=== PATIENT | male | born 1965 | race Caucasian/White ===

== ENCOUNTER → 2016-06-09 | Outpatient (CLI) | payer OTHER ==
[~2016-06-09] MED LIST: ATV/1 PO; EFF75 PO; EFFSR75 PO; HYDR-5688 PO; IBUP-103 PO; LOPE-5 PO; LOSA25TA18 PO; LSN20 PO; PARO30TA4 PO; PRLSR20 PO; VENL150T33 PO; VENL75CA73 PO
--- NOTE | 2016-06-09 09:31 | DIAGNOSTIC IMAGING REPORT ---
KUB CLINICAL HISTORY: Microscopic hematuria. Right-sided pain. COMPARISON STUDY: None. FINDINGS: There are are cholecystectomy clips. No renal calculi are identified although the renal shadows are partially obscured by stool. Pelvic calcifications likely reflect phleboliths. IMPRESSION: 1. No urinary calculi identified although the renal shadows are partially obscured by stool. 2. No evidence for a bowel obstruction. 3. Moderate amount of stool within the colon. 4. Pelvic calcifications which likely reflect phleboliths. Electronically signed by: Sen Hall M.D. 06/09/2016 9:29 AM Dictated Date/Time: 06/09/2016 9:28 AM
== END | disposition home or self-care (01) ==
LOC: C.RAD1850 09:11
PROVIDERS: ATTEND Family Medicine
DX: R31.29 Other microscopic hematuria (principal); I87.8 Other specified disorders of veins

== ENCOUNTER → 2016-06-09 | Outpatient (CLI) | payer OTHER | END | disposition home or self-care (01) | LOC: C.LABSPEC 09:55 | PROVIDERS: ATTEND Family Medicine | DX: R35.0 Frequency of micturition (principal) ==

== ENCOUNTER → 2016-06-10 | Outpatient (CLI) | payer OTHER ==
--- NOTE | 2016-06-10 09:46 | DIAGNOSTIC IMAGING REPORT ---
TESTICULAR ULTRASOUND HISTORY: RT GROIN PAIN,TESTICULAR PAIN COMPARISON: None. FINDINGS: Right testis: There are no intratesticular masses. Normal color flow. No hydrocele. The epididymis is unremarkable. Left testis: There are no intratesticular masses. Normal color flow. No hydrocele. The epididymis is unremarkable. IMPRESSION: Normal testicular ultrasound. Electronically signed by: Len Grey M.D. 06/10/2016 9:44 AM Dictated Date/Time: 06/10/2016 9:43 AM
--- NOTE | 2016-06-10 09:47 | DIAGNOSTIC IMAGING REPORT ---
RIGHT INGUINAL ULTRASOUND TO EVALUATE FOR HERNIA CLINICAL HISTORY: Right groin pain. Testicular pain. COMPARISON STUDY: No previous studies for comparison. FINDINGS: There is a possible fat-containing right inguinal hernia. This appeared reducible. Comparison sonography of the left inguinal region revealed no left-sided inguinal hernia. IMPRESSION: Possible fat-containing reducible right inguinal hernia. Electronically signed by: Sen Hall M.D. 06/10/2016 9:46 AM Dictated Date/Time: 06/10/2016 9:43 AM
== END | disposition home or self-care (01) ==
LOC: C.ULTRBC 08:52
PROVIDERS: ATTEND Family Medicine
DX: N50.819 Testicular pain, unspecified (principal); R10.30 Lower abdominal pain, unspecified

== ENCOUNTER → 2016-06-30 | Outpatient (CLI) | payer OTHER ==
[2016-06-30 14:04] LABS: URINE APPEARANCE CLEAR (CLEAR); URINE BILIRUBIN NEG (NEG); URINE COLOR YELLOW; URINE EPITHELIAL CELL AUTO 0-5 /lpf (0-5); URINE NITRITE NEG (NEG); URINE PH 7.5 (4.5-7.5); URINE SPECIFIC GRAVITY 1.003 (1.000-1.030); UROBILINOGEN NEG (NEG)
[2016-06-30 14:10] LABS: MANUAL MICROSCOPIC REQUIRED? NO; REVIEW REQ? NO
== END | disposition home or self-care (01) ==
LOC: C.LABBC 09:38
PROVIDERS: ATTEND Family Medicine
DX: R31.29 Other microscopic hematuria (principal)

== ENCOUNTER → 2016-07-03 | Outpatient (CLI) | payer OTHER ==
[2016-07-03 11:28] LABS: ALT/SGPT 25 U/L (12-78); AST/SGOT 17 U/L (15-37); BLOOD UREA NITROGEN 10 mg/dl (7-18); BUN/CREATININE RATIO 12.2 (10-20); CALCIUM 8.4 mg/dl (8.5-10.1); CARBON DIOXIDE 31 mmol/L (21-32); CHLORIDE 105 mmol/L (98-107); CREATININE 0.82 mg/dl (0.60-1.40); GLUCOSE 96 mg/dl (70-99); POTASSIUM 4.1 mmol/L (3.5-5.1); SODIUM 141 mmol/L (136-145)
[2016-07-03 11:34] LABS: ALB/GLOB RATIO 1.1 (0.9-2); ALKALINE PHOSPHATASE 60 U/L (45-117)
[2016-07-03 11:35] LABS: ESTIMATED AVERAGE GLUCOSE 94 mg/dl; HA1C FLAG Normal (Normal)
== END | disposition home or self-care (01) ==
LOC: C.LABBC 08:17
PROVIDERS: ATTEND Family Medicine
DX: R81 Glycosuria (principal); R35.0 Frequency of micturition

== ENCOUNTER → 2016-07-09 | Outpatient (CLI) | payer OTHER ==
[~2016-07-09] MED LIST changes: +OPTIRAY 320 IV PRN
--- NOTE | 2016-07-09 11:27 | DIAGNOSTIC IMAGING REPORT ---
CT UROGRAM CLINICAL HISTORY: Hematuria. COMPARISON STUDY: KUB dated 06/09/2016. TECHNIQUE: Before and following the IV administration of 120 cc of Optiray 320, CT urogram of the abdomen and pelvis is performed from the lung bases to the proximal femora. Images are reviewed in the axial, sagittal, and coronal planes. IV contrast was administered without complication. CT DOSE: 1211.32 mGy.cm FINDINGS: Lung bases: The heart is normal in size and without pericardial effusion. There is a 5 mm right lower lobe pulmonary nodule seen on image #34. The lung bases are otherwise clear. Liver: The contrast-enhanced liver is normal in size, contour, and attenuation. There is no intrahepatic biliary ductal dilatation. The hepatic veins and portal veins are patent. Gallbladder: Surgically absent noting clips in the gallbladder fossa. Spleen: Normal in size and attenuation. Pancreas: Unremarkable. Adrenal glands: A 1.6 cm left adrenal nodule meets CT criteria for a fat-containing adenoma. The right adrenal gland is unremarkable. Kidneys and ureters: The contrast enhanced kidneys are normal in size and without hydronephrosis. There are no renal calculi identified on the unenhanced images. The kidneys enhance and excrete symmetrically. There is no enhancing renal cortical mass lesion identified. Subcentimeter hypodensities in both kidneys likely represent cysts but are too small for definitive characterization. There is no evidence of urothelial lesion within the renal pelvis bilaterally or along the course of either ureter. Abdominal vasculature: The abdominal aorta is normal in course and caliber. Bowel: There is no bowel obstruction. There is mild to moderate sigmoid diverticulosis without CT evidence of acute diverticulitis. Mild colonic fecal retention is observed. The appendix is well-visualized and normal. Peritoneum: There is no intraperitoneal free air or abdominal ascites. A midline surgical scar is noted. There are several fat-containing ventral hernias. The largest hernias are seen on image #169 and #188. Lymphadenopathy: None. Pelvic viscera: There is mild median lobe hypertrophy of the prostate gland. The bladder wall appears mildly thickened and trabeculated suggesting the sequelae of chronic outlet obstruction. The seminal vesicles are normal as imaged. Skeletal structures: There is mild lumbosacral spondylosis. Degenerative sclerosis is seen in the sacroiliac joints, left greater than right. No lytic or blastic bony lesions are seen. IMPRESSION: 1. The kidneys are normal in size and without hydronephrosis. There are no renal calculi identified. 2. There is no enhancing renal cortical mass. No evidence of urothelial lesion is seen within the renal pelvis bilaterally or along the course of the ureters. 3. There is mild median lobe hypertrophy of the prostate gland. The bladder wall appears slightly thickened and trabeculated suggesting chronic outlet obstruction. 4. Mild to moderate sigmoid diverticulosis without CT evidence of acute diverticulitis. 5. There is an indeterminant 5 mm pulmonary nodule at the right lung base. This can be followed as per the Fleischner criteria. See below. 6. There is a midline surgical scar with fat-containing ventral hernias. 7. Additional findings as above. Electronically signed by: Ciaran Mcdermott M.D. 07/09/2016 11:26 AM Dictated Date/Time: 07/09/2016 11:15 AM
== END | disposition home or self-care (01) ==
LOC: C.CTS 10:40
PROVIDERS: ATTEND Family Medicine
DX: R31.29 Other microscopic hematuria (principal); R91.1 Solitary pulmonary nodule; K43.9 Ventral hernia without obstruction or gangrene

== ENCOUNTER 2016-07-10 15:38 | Emergency (ER) | payer OTHER ==
[~2016-07-10] VITALS: Ht 185.4 cm; Wt 96.1 kg
[~2016-07-10 15:38] MED LIST changes: -ATV/1 PO; -EFF75 PO; -HYDR-5688 PO; -IBUP-103 PO; -LOSA25TA18 PO; -OPTIRAY 320 IV PRN; -PRLSR20 PO; -VENL150T33 PO; -VENL75CA73 PO
[2016-07-10 15:40] VITALS: TEMP 37; Ht 185.4 cm; Wt 96.1 kg
--- NOTE | 2016-07-10 16:02 | EMERGENCY ROOM VISIT NOTE ---
History Report prepared by Samuel: Sheyla Blackman Under the Supervision of: Dr. Joaquin Mayfield M.D. First contact with patient: 15:50 Chief Complaint: GI ASSESSMENT Stated Complaint: COUGHING UP BLOOD Nursing Triage Summary: Pt c/o "coughing up blood today", coughing started last night. Pt states he has been seeing Dr Kohler. Two UA, both had blood, prostate enlarged , bladder wall thickened, also has hernia and nodule on lung. History of Present Illness The patient is a 51 year old male who presents to the Emergency Room with complaints of persistent hemoptysis that began today. He currently rates his discomfort as a 2/10 in severity. The patient states that yesterday he noticed a slight cough, but states that today he started coughing up blood. He states that he coughed up a clot today, and now has been noticing bright red blood. The patient denies any hematemesis. He states that he called the nursing line today and was instructed to come to the emergency department for further work up. The patient denies any fever or chills. He states that he is a daily smoker for the past thirty years. The patient states that he smokes one pack per day. He states that recently he has been taking ibuprofen for a pulled muscle. The patient denies any recent sinus infection or oral infection. He states that three weeks ago he went to his PCP for right groin pain and was found to have a hernia. The patient states that he has an appointment with a general surgeon this week. He additionally notes that he had two urinalyses that showed hematuria. The patient states that he had a CT scan that showed an enlarged prostate, thickening of his bladder wall, and a small nodule in his lung. He states that no kidney stone was found. The patient states that he also has been referred to a software licensing analyst for his lung nodule. Source of History: patient Onset: today Position: other (global) Symptom Intensity: 2/10 Quality: other (hemoptysis) Timing: other (persistent) Associated Symptoms: + cough, + urinary symptoms (hematuria), No chills, No fevers Review of Systems All systems have been listed, reviewed, and are negative other than those previously mentioned. Please see Additional Medical History Sheet. Past Medical & Surgical Medical Problems: (1) Depression (2) Hypertension Surgical Problems: (1) H/O hernia repair (2) Hx of cholecystectomy Family History Cancer Diabetes mellitus FH: gallbladder disease Heart disease Hypertension Kidney disease Kidney stones Social History Smoking Status: Current Every Day Smoker Alcohol Use: none Marital Status: Housing Status: lives with family Occupation Status: employed Current/Historical Medications Scheduled Losartan Potassium (Cozaar), 25 MG PO DAILY Omeprazole (Prilosec), 20 MG PO DAILY Venlafaxine Hcl (Venlafaxine Hcl Er), 150 MG PO DAILY Venlafaxine Hcl (Venlafaxine Extended Rel), 75 MG PO DAILY Scheduled PRN Ibuprofen Tab (Advil), 400 MG PO Q6H PRN for Pain Lorazepam (Ativan), 1 MG PO BID PRN for Anxiety Allergies Coded Allergies: No Known Allergies (Verified , 07/10/16) Physical Exam Vital Signs Date Time Temp Pulse Resp B/P Pulse Ox O2 Delivery O2 Flow Rate FiO2 07/10/16 15:40 37.0 77 17 151/94 98 Room Air Physical Exam GENERAL: Patient awake, alert, oriented x 3. Patient follows commands. Patient does not appear toxic. Patient is adequately hydrated and well- nourished. SKIN: No erythema, pallor, cyanosis or rash HEENT: Normal head, pupils equal, reactive to light and accommodation. Ears normal. Oral cavity and posterior pharynx appear normal. Neck: Without adenopathy, no neck vein distention. LUNGS: Clear to auscultation. No wheezes, no rales, no rhonchi. HEART: No murmurs. No gallops. No rubs ABDOMEN: No masses, no rebound, no hepatomegaly or splenomegaly. EXTREMITIES: No signs of trauma. No pedal or pretibial edema. No calf or thigh tenderness. NEUROLOGIC: Cranial nerves II-XII within normal limits. No gross motor sensory function deficits. Medical Decision & Procedures ER Provider Diagnostic Interpretation: CT results are interpretations by the radiologist and per my review. CT ANGIOGRAM OF THE CHEST CLINICAL HISTORY: Hemoptysis COMPARISON STUDY: Chest x-ray performed October 2013 TECHNIQUE: Following the IV administration of 122 mL of Optiray-320, CT angiogram of the thorax was performed from the thoracic inlet to the lung bases utilizing the pulmonary embolus protocol. Images are reviewed in the axial, sagittal, and coronal planes. IV contrast was administered without complication. MIP imaging was performed. CT DOSE: 484.01 mGy.cm FINDINGS: No pathologically enlarged axillary mediastinal or hilar lymph nodes were visualized. There was no evidence of thoracic aortic dilatation. There were no pulmonary artery filling defects to indicate acute pulmonary embolism. No pleural effusions are visualized. There is a 6 mm right lower lobe pulmonary nodule as visualized in image #125/318. There is a 3 mm right lower lobe pulmonary nodule as visualized in image #156/318. There is no focal pulmonary consolidation. There are biapical blebs. IMPRESSION: 1. No CT evidence of acute pulmonary embolism 2. 6 mm right lower lobe pulmonary nodule. Follow-up per Fleischner criteria is recommended. 3. No evidence of focal pulmonary consolidation Please refer to below summary of Fleischner criteria recommendations for follow-up of incidental CT nodules (Ruma Gamboa, Guidelines for management of small pulmonary nodules detected on CT scans: A statement from the Fleischner Society, Radiology 237: [phone].) Low Risk Patient: Minimal or no smoking or other known risk factors for malignancy <=4 mm: No follow-up needed. >4-6 mm: Initial follow-up CT at 12 months; if unchanged, no further follow-up. >6-8 mm: Initial follow-up CT at 6-12 months then at 18-24 months if no change. >8 mm: Follow-up CT at \\R\\3, 9, 24 months, or PET and/or biopsy. High Risk Patient: History of smoking or other known risk factors <=4 mm: Follow-up at 12 months; if unchanged, no further follow-up. >4-6 mm: Initial follow-up CT at 6-12 months then at 18-24 months if no change. >6-8 mm: Initial follow-up CT at 3-6 months then at 9-12 and 24 months if no change. >8 mm: Same as low risk patient. Note: Nodule size measured as average of length and width. Ground glass or partly solid nodules may require longer follow-up to exclude indolent adenocarcinoma. Electronically signed by: Lexx Lewis M.D. 07/10/2016 6:31 PM Dictated Date/Time: 07/10/2016 6:25 PM Laboratory Results 07/10/16 16:10 Red Blood Count 4.56, Mean Corpuscular Volume 93.6, Mean Corpuscular Hemoglobin 32.5, Mean Corpuscular Hemoglobin Concent 34.7, Mean Platelet Volume 9.2, Neutrophils (%) (Auto) 55.8, Lymphocytes (%) (Auto) 33.3, Monocytes (%) (Auto) 7.8, Eosinophils (%) (Auto) 2.5, Basophils (%) (Auto) 0.6, Neutrophils # (Auto) 2.94, Lymphocytes # (Auto) 1.75, Monocytes # (Auto) 0.41, Eosinophils # (Auto) 0.13, Basophils # (Auto) 0.03 07/10/16 16:10 Test 07/10/16 16:10 White Blood Count 5.26 K/uL (4.8-10.8) Red Blood Count 4.56 M/uL (4.7-6.1) Hemoglobin 14.8 g/dL (14.0-18.0) Hematocrit 42.7 % (42-52) Mean Corpuscular Volume 93.6 fL (80-100) Mean Corpuscular Hemoglobin 32.5 pg (25-34) Mean Corpuscular Hemoglobin Concent 34.7 g/dl (32-36) Platelet Count 245 K/uL (130-400) Mean Platelet Volume 9.2 fL (7.4-10.4) Neutrophils (%) (Auto) 55.8 % Lymphocytes (%) (Auto) 33.3 % Monocytes (%) (Auto) 7.8 % Eosinophils (%) (Auto) 2.5 % Basophils (%) (Auto) 0.6 % Neutrophils # (Auto) 2.94 K/uL (1.4-6.5) Lymphocytes # (Auto) 1.75 K/uL (1.2-3.4) Monocytes # (Auto) 0.41 K/uL (0.11-0.59) Eosinophils # (Auto) 0.13 K/uL (0-0.5) Basophils # (Auto) 0.03 K/uL (0-0.2) RDW Standard Deviation 47.0 fL (36.4-46.3) RDW Coefficient of Variation 13.7 % (11.5-14.5) Immature Granulocyte % (Auto) 0.0 % Immature Granulocyte # (Auto) 0.00 K/uL (0.00-0.02) Prothrombin Time 10.8 SECONDS (9.0-12.0) Prothromb Time International Ratio 1.0 (0.9-1.1) Activated Partial Thromboplast Time 29.2 SECONDS (21.0-31.0) Partial Thromboplastin Ratio 1.1 Anion Gap 9.0 mmol/L (3-11) Est Creatinine Clear Calc Drug Dose 141.8 ml/min Estimated GFR () 123.5 Estimated GFR (Non- 106.6 BUN/Creatinine Ratio 9.6 (10-20) Calcium Level 9.0 mg/dl (8.5-10.1) Total Bilirubin 0.4 mg/dl (0.2-1) Aspartate Amino Transf (AST/SGOT) 15 U/L (15-37) Alanine Aminotransferase (ALT/SGPT) 23 U/L (12-78) Alkaline Phosphatase 62 U/L (45-117) Troponin I 0.020 ng/ml (0-0.045) Total Protein 7.5 gm/dl (6.4-8.2) Albumin 3.7 gm/dl (3.4-5.0) Globulin 3.8 gm/dl (2.5-4.0) Albumin/Globulin Ratio 1.0 (0.9-2) Laboratory results as stated above per my review. ECG Indication: other (hemoptysis) Rate (beats per minute): 56 Rhythm: sinus bradycardia Findings: no acute ischemic change, no ectopy ED Course 1550: Past medical records reviewed. The patient was evaluated in room B6. A complete history and physical examination was performed. 1831: I reevaluated the patient and he is resting comfortably. I discussed the exam findings with him and I discussed the treatment plan. He verbalized complete understanding and agreement. He is ready to go home. Medical Decision Nurses notes reviewed. Medical history sheet reviewed. Differential diagnosis includes but is not limited to: hemoptysis, PE, neoplastic disease, bronchitis, pneumonia, congestive failure. Multiple labs, EKG and imaging were obtained. Please see above. Patient has a normal hemoglobin and hematocrit. His white count is within normal range. The patient does not appear to have a coagulopathy. CT reveals the same nodule that was seen on the CT abdomen. No evidence of PE or pneumonia. The patient is stable. I believe that he can safely return home but will most likely need a bronchoscopy in the near future. He is a type to his family physician on Tuesday. The patient was instructed to return here sooner if he is coughing up much more blood. Impression Primary Impression: Hemoptysis Additional Impression: Pulmonary nodule Scribe Attestation The scribe's documentation has been prepared under my direction and personally reviewed by me in its entirety. I confirm that the note above accurately reflects all work, treatment, procedures, and medical decision making performed by me. Departure Information Dispostion Home / Self-Care Referrals Dwain Kohler, D.O.Int.Med. (PCP) Patient Instructions ED Nodule Solitary Pulmonary, My [facility] Additional Instructions Speak with your family physician on Tuesday. Continue all of your current medications as prescribed. Problem Qualifiers
[2016-07-10] MEDS ORDERED: OPTIRAY 320 IV PRN (16:15)
[2016-07-10] MEDS ORDERED: EFF75 PO (16:17)
[2016-07-10] MEDS ORDERED: ATV/1 PO (16:17)
[2016-07-10] MEDS ORDERED: VENL75CA73 PO (16:17)
[2016-07-10] MEDS ORDERED: LOSA25TA18 PO (16:17)
[2016-07-10] MEDS ORDERED: VENL150T33 PO (16:17)
[2016-07-10] MEDS ORDERED: IBUP-103 PO (16:18)
[2016-07-10 16:38] LABS: BASO % 0.6 %; BASO ABS # 0.03 K/uL (0-0.2); COMPLETE YES; EOS % 2.5 %; HEMATOCRIT 42.7 % (42-52); LYMPH % 33.3 %; LYMPH ABS # 1.75 K/uL (1.2-3.4); MEAN CELL VOLUME 93.6 fL (80-100); MEAN CORPUSCULAR HEMOGLOBIN 32.5 pg (25-34); MEAN CORPUSCULAR HGB CONC 34.7 g/dl (32-36); MEAN PLATELET VOLUME 9.2 fL (7.4-10.4); MONO % 7.8 %; NEUT % 55.8 %; PLATELET COUNT 245 K/uL (130-400); RED BLOOD COUNT 4.56 M/uL (4.7-6.1); WHITE BLOOD COUNT 5.26 K/uL (4.8-10.8)
[2016-07-10 16:46] LABS: PARTIAL THROMBOPLASTIN RATIO 1.1; PROTHROMBIN TIME (PATIENT) 10.8 SECONDS (9.0-12.0)
[2016-07-10 16:55] LABS: BUN/CREATININE RATIO 9.6 (10-20); CREATININE 0.77 mg/dl (0.60-1.40); POTASSIUM 3.8 mmol/L (3.5-5.1)
--- NOTE | 2016-07-10 18:32 | DIAGNOSTIC IMAGING REPORT ---
CT ANGIOGRAM OF THE CHEST CLINICAL HISTORY: Hemoptysis COMPARISON STUDY: Chest x-ray performed October 2013 TECHNIQUE: Following the IV administration of 122 mL of Optiray-320, CT angiogram of the thorax was performed from the thoracic inlet to the lung bases utilizing the pulmonary embolus protocol. Images are reviewed in the axial, sagittal, and coronal planes. IV contrast was administered without complication. MIP imaging was performed. CT DOSE: 484.01 mGy.cm FINDINGS: No pathologically enlarged axillary mediastinal or hilar lymph nodes were visualized. There was no evidence of thoracic aortic dilatation. There were no pulmonary artery filling defects to indicate acute pulmonary embolism. No pleural effusions are visualized. There is a 6 mm right lower lobe pulmonary nodule as visualized in image #125/318. There is a 3 mm right lower lobe pulmonary nodule as visualized in image #156/318. There is no focal pulmonary consolidation. There are biapical blebs. IMPRESSION: 1. No CT evidence of acute pulmonary embolism 2. 6 mm right lower lobe pulmonary nodule. Follow-up per Fleischner criteria is recommended. 3. No evidence of focal pulmonary consolidation Please refer to below summary of Fleischner criteria recommendations for follow-up of incidental CT nodules (Ruma Gamb[place], Guidelines for management of small pulmonary nodules detected on CT scans: A statement from the Fleischner Society, Radiology 237: [phone].) Low Risk Patient: Minimal or no smoking or other known risk factors for malignancy <=4 mm: No follow-up needed. >4-6 mm: Initial follow-up CT at 12 months; if unchanged, no further follow-up. >6-8 mm: Initial follow-up CT at 6-12 months then at 18-24 months if no change. >8 mm: Follow-up CT at \R\3, 9, 24 months, or PET and/or biopsy. High Risk Patient: History of smoking or other known risk factors <=4 mm: Follow-up at 12 months; if unchanged, no further follow-up. >4-6 mm: Initial follow-up CT at 6-12 months then at 18-24 months if no change. >6-8 mm: Initial follow-up CT at 3-6 months then at 9-12 and 24 months if no change. >8 mm: Same as low risk patient. Note: Nodule size measured as average of length and width. Ground glass or partly solid nodules may require longer follow-up to exclude indolent adenocarcinoma. Electronically signed by: Lexx Lewis M.D. 07/10/2016 6:31 PM Dictated Date/Time: 07/10/2016 6:25 PM
[2016-07-10 18:55] VITALS: BP 144/92; PULSE 78; O2SAT 100
[2016-07-10] MEDS ORDERED: PRLSR20 PO (22:28)
[2016-07-27] MEDS ORDERED: HYDR-5688 PO (08:26)
[2016-08-31] MEDS ORDERED: HYDR-5688 PO (07:46)
== END 2016-07-10 18:55 | disposition home or self-care (01) ==
LOC: C.EDB 15:39
DX: R04.2 Hemoptysis (principal); R91.1 Solitary pulmonary nodule; F17.200 Nicotine dependence, unspecified, uncomplicated; I10 Essential (primary) hypertension; F32.9 Major depressive disorder, single episode, unspecified; Z90.49 Acquired absence of other specified parts of digestive tract

== ENCOUNTER → 2016-07-22 | Outpatient (CLI) | payer OTHER ==
[~2016-07-22] MED LIST changes: +ATV/1 PO; -EFFSR75 PO; +HYDR-5688 PO; -LOPE-5 PO; +LOSA25TA18 PO; -LSN20 PO; -PARO30TA4 PO; +PRLSR20 PO; +VENL150T33 PO; +VENL75CA73 PO
[2016-07-22 10:22] LABS: HEMATOCRIT 43.7 % (42-52); MEAN CELL VOLUME 94.2 fL (80-100); MEAN CORPUSCULAR HEMOGLOBIN 31.9 pg (25-34); MEAN CORPUSCULAR HGB CONC 33.9 g/dl (32-36); PLATELET COUNT 268 K/uL (130-400); RED BLOOD COUNT 4.64 M/uL (4.7-6.1); WHITE BLOOD COUNT 6.37 K/uL (4.8-10.8)
[2016-07-24 23:32] LABS: MYELOPEROXIDASE AB <1.0 AI (<1.0)
== END | disposition home or self-care (01) ==
LOC: C.LAB1850 09:34
PROVIDERS: ATTEND Internal Medicine Pulmonary Disease
DX: R04.2 Hemoptysis (principal)

== ENCOUNTER → 2016-07-27 | Day surgery (SDC) | payer OTHER ==
[2016-07-16 14:36] VITALS: Ht 185.4 cm; Wt 92.7 kg
[~2016-07-27] VITALS: Ht 185.4 cm; Wt 92.7 kg
[~2016-07-27] MED LIST changes: +ATROPINE SULFATE 0.1 MG/ML 5ML SYR IV PRN; +BUPIVACAINE/EPINEPHRINE 0.5% MPF 1:200,000 30 ML VIAL ONE; +CEFAZOLIN 2000 MG/60 ML D5W IV SCH; +DEXAMETHASONE SOD INJ 4 MG/ML VIAL ONE; +EpHEDrine SULFATE INJ 50 MG/ML AMP IV PRN; +FENTANYL CITRATE INJ 50 MCG/1 ML 2 ML VIAL IV PRN; +FENTANYL CITRATE INJ 50 MCG/1 ML 2 ML VIAL ONE; +FLUMAZENIL 0.1 MG/1 ML 10 ML VIAL IV PRN; +HYDROCODONE/ACETAMOPHEN 5/325MG TAB ONE; +HYDROCODONE/ACETAMOPHEN 5/325MG TAB PO PRN; +HYDROmorphone INJ 2 MG/ML SYR/VIAL IV PRN; +LABETALOL HCL IV 5 MG/ML 20ML IV PRN; +LACTATED RINGER'S 1000ML 1,000 ML IV SCH; +LIDOCAINE HCL 2% 2 ML VIAL (20MG/ML) ONE; +MEPERIDINE HCL 25 MG/ML CARP IV PRN; +MIDAZOLAM HCL 1 MG/ML 2ML VIAL ONE; +NALOXONE HCL 0.4 MG/1 ML VIAL/CARP IV PRN; +ONDANSETRON INJ 2 MG/ML 2 ML VIAL IV PRN; +ONDANSETRON INJ 2 MG/ML 2 ML VIAL ONE; +PHENYLEPHRINE 100MCG/ML 5ML SYR IV PRN; +PROPOFOL IV EMULSION 10 MG/ML 20 ML VIAL IV ONE; +SODIUM CHLORIDE 0.9% 1000ML 1,000 ML IV SCH
--- NOTE | 2016-07-27 08:23 | History & Physical Bridge Note ---
H&P Re-Evaluation Bridge Note: I have examined the patient, reviewed the History & Physical and in the interval since the performance of the History & Physical I have noted the following changes of clinical significance: No changes noted
--- NOTE | 2016-07-27 10:33 | Discharge Instructions-SurgCtr ---
Discharge Instructions Date of Service Jul 27, 2016. Visit Reason for Visit: Right Inguinal Hernia Discharge Discharge Diagnosis / Problem: large indirect right inguinal hernia Discharge Goals Goal(s): Decrease discomfort, Improve function Activity Recommendations Activity Limitations: as noted below Lifting Limitations: no more than 10 pounds Exercise/Sports Limitations: until after follow-up appointment May Resume Sexual Activity: after follow-up appointment Shower/Bathe: tomorrow Anesthesia . Post Anesthesia Instructions: If you have had General Anesthesia or IV Sedation: * Do not drive today. * Resume driving when surgeon permits. * Do not make important decisions or sign legal documents today. * Call surgeon for: 1. Temperature elevations greater than 101 degrees F. 2. Uncontrollable pain. 3. Excessive bleeding. 4. Persistent nausea and vomiting. 5. Medication intolerance (nausea, vomiting or rash). * For nausea and vomiting use only clear liquids such as: tea, soda, bouillon until nausea subsides, then gradually increase diet as tolerated. * If you have any concerns or questions, call your surgeon's office. If physician is unavailable and it is an emergency, call 911 or go to the nearest emergency room. . Diet Recommendations Home Diet: resume previous diet Procedures Procedures Performed: Right Inguinal Open Hernia Repair With Mesh Pending Studies Studies pending at discharge: no Medical Emergencies . Who to Call and When: Medical Emergencies: If at any time you feel your situation is an emergency, please call 911 immediately. . Non-Emergent Contact Non-Emergency issues call your: Primary Care Provider, Surgeon Call Non-Emergent contact if: temperature is above 101, wound has increased drainage, wound has increased redness, wound has increased pain . . "Provider Documentation" section prepared by Niraj Schwartz.
--- NOTE | 2016-07-27 10:34 | [facility] Operative Report ---
Operative Report Operative Date Jul 27, 2016. Pre-Operative Diagnosis Right Inguinal Hernia Post-Operative Diagnosis large indirect right inguinal hernia Procedure(s) Performed open right inguinal hernia repair with mesh Surgeon Dr Schwartz [employer] Water [employer] Surgeon(s) None Estimated Blood Loss 25ML Findings large indirect right inguinal hernia Specimens None Anesthesia LMA Complication(s) None Disposition Recovery Room / PACU I attest to the content of the Intraoperative Record and any orders documented therein. Any exceptions are noted below.
--- NOTE | 2016-07-27 10:57 | Anesthesia Progress Nt - [facility] ---
Anesthesia Post Op Note Date & Time Jul 27, 2016 at 10:57 Vital Signs Pain Intensity: 0 Vital Signs Past 12 Hours Date Time Temp Pulse Resp B/P Pulse Ox O2 Delivery O2 Flow Rate FiO2 07/27/16 10:32 36.7 85 14 156/89 99 Diffusion Mask 8 07/27/16 07:48 36.7 68 16 147/92 97 Room Air Notes Mental Status: alert / awake / arousable, participated in evaluation Pt Amnestic to Procedure: Yes Nausea / Vomiting: adequately controlled Pain: adequately controlled Airway Patency, RR, SpO2: stable & adequate BP & HR: stable & adequate Hydration State: stable & adequate Anesthetic Complications: no major complications apparent
[2016-07-27 11:16] VITALS: TEMP 36.7
--- NOTE | 2016-07-27 11:22 | OPERATIVE REPORT ---
DATE OF OPERATION: 07/27/2016 PREOPERATIVE DIAGNOSIS: Right inguinal hernia. POSTOPERATIVE DIAGNOSIS: Large indirect right inguinal hernia. PROCEDURES: Open right inguinal hernia repair with mesh. SURGEON: Dr. Schwartz. ESTIMATED BLOOD LOSS: Approximately 25 mL. COMPLICATIONS: No immediate. ANESTHESIA: General with laryngeal mask airway. OPERATIVE NOTE: After informed consent was obtained, the patient was taken to the operating suite, placed in supine position. After successful intubation with the LMA the right groin was shaved and sterilely prepped and draped in usual fashion. An inguinal incision was made with a 10 blade scalpel and carried down through the soft tissue using electrocautery. A Weitlaner retractor was used to help exposure. We skeletonized the external oblique aponeurosis. I then made an incision in the aponeurosis with a new 15 blade scalpel and using Metzenbaum scissors we carried this incision distally through the external ring as well as several centimeters proximally. Once in the inguinal canal, we were able to bluntly dissect the surrounding tissue free. I was able to grasp the cord and cord structures with a Jacinto and elevated it and use a blunt finger to gently pick it off the pubic bone. Raymond drain was placed around it to help identification and exposure. There was no evidence of a direct hernia. We slowly explored the cord and cord contents using small amounts of electrocautery as well as blunt dissection. We immediately encountered a very large chronic hernia sac. We gently teased it away from cord and cord structures again using small amounts of electrocautery. Eventually we were able to get the sac which again was very large and chronic and thickened back to its neck at the base of the spermatic cord. We were then able to readily dunk this back down into the abdominal cavity. It did stay reduced on its own. Next, we used a piece of polypropylene mesh that was was santamaria holed as an onlay. We placed it into the floor of the inguinal canal and secured it distally to Epifanio's ligament, laterally along the shelving portion of Poupart's ligament and medially along the midline musculature. It was secured using 0 Ethibond in simple interrupted fashion. The "arms" of the mesh were wrapped around behind the cord and cord structures and again secured to underlying muscle. The mesh was not impinging on the cord itself. No other abnormalities were identified. There was adequate hemostasis at the end of the procedure. We thoroughly irrigated the wound. We then closed the external oblique aponeurosis with 2-0 Vicryl in a running fashion. Prior to doing that, I did inject around the edges of the mesh with Marcaine for postoperative analgesia. After closing the external oblique aponeurosis I irrigated the soft tissue and closed it with 3-0 Vicryl and the skin was closed with 4-0 Monocryl. Some additional Marcaine was injected around the incision and Dermabond glue placed as a dressing. The patient was awakened, extubated, and transferred to recovery in stable condition. I attest to the content of the Intraoperative Record and any orders documented therein. Any exceptio ns are noted below.
[2016-07-27 11:58] VITALS: BP 147/88; PULSE 69; O2SAT 96
== END | disposition home or self-care (01) ==
LOC: X.SURG 07:33
PROVIDERS: ATTEND Surgery
DX: K40.90 Unilateral inguinal hernia, without obstruction or gangrene, not specified as recurrent (principal); I10 Essential (primary) hypertension; F41.9 Anxiety disorder, unspecified; K21.9 Gastro-esophageal reflux disease without esophagitis; F32.9 Major depressive disorder, single episode, unspecified; F17.210 Nicotine dependence, cigarettes, uncomplicated; Z68.27 Body mass index [BMI] 27.0-27.9, adult; Z98.890 Other specified postprocedural states; Z90.49 Acquired absence of other specified parts of digestive tract; Z83.3 Family history of diabetes mellitus; Z80.0 Family history of malignant neoplasm of digestive organs; Z82.49 Family history of ischemic heart disease and other diseases of the circulatory system

== ENCOUNTER → 2016-08-09 | Outpatient (CLI) | payer OTHER ==
[~2016-08-09] MED LIST changes: -ATROPINE SULFATE 0.1 MG/ML 5ML SYR IV PRN; -BUPIVACAINE/EPINEPHRINE 0.5% MPF 1:200,000 30 ML VIAL ONE; -CEFAZOLIN 2000 MG/60 ML D5W IV SCH; -DEXAMETHASONE SOD INJ 4 MG/ML VIAL ONE; -EpHEDrine SULFATE INJ 50 MG/ML AMP IV PRN; -FENTANYL CITRATE INJ 50 MCG/1 ML 2 ML VIAL IV PRN; -FENTANYL CITRATE INJ 50 MCG/1 ML 2 ML VIAL ONE; -FLUMAZENIL 0.1 MG/1 ML 10 ML VIAL IV PRN; -HYDROCODONE/ACETAMOPHEN 5/325MG TAB ONE; -HYDROCODONE/ACETAMOPHEN 5/325MG TAB PO PRN; -HYDROmorphone INJ 2 MG/ML SYR/VIAL IV PRN; -LABETALOL HCL IV 5 MG/ML 20ML IV PRN; -LACTATED RINGER'S 1000ML 1,000 ML IV SCH; -LIDOCAINE HCL 2% 2 ML VIAL (20MG/ML) ONE; -MEPERIDINE HCL 25 MG/ML CARP IV PRN; -MIDAZOLAM HCL 1 MG/ML 2ML VIAL ONE; -NALOXONE HCL 0.4 MG/1 ML VIAL/CARP IV PRN; -ONDANSETRON INJ 2 MG/ML 2 ML VIAL IV PRN; -ONDANSETRON INJ 2 MG/ML 2 ML VIAL ONE; -PHENYLEPHRINE 100MCG/ML 5ML SYR IV PRN; -PROPOFOL IV EMULSION 10 MG/ML 20 ML VIAL IV ONE; -SODIUM CHLORIDE 0.9% 1000ML 1,000 ML IV SCH
== END | disposition home or self-care (01) ==
LOC: C.LABSPEC 17:07
PROVIDERS: ATTEND Nurse Practitioner Family
DX: R31.29 Other microscopic hematuria (principal)

== ENCOUNTER → 2016-08-18 | Outpatient (CLI) | payer OTHER ==
--- NOTE | 2016-08-18 11:04 | DIAGNOSTIC IMAGING REPORT ---
C-SPINE ROUTINE 4 OR 5 VIEWS CLINICAL HISTORY: Neck pain COMPARISON STUDY: No previous studies for comparison. FINDINGS: The prevertebral soft tissues are normal. No fractures or subluxations are visualized. There are multilevel degenerative changes present. There is right-sided foraminal encroachment at the C5-6 level. IMPRESSION: 1. Mild multilevel degenerative change 2. Right-sided foraminal narrowing C5-6 level. 3. No fractures or traumatic subluxations identified Electronically signed by: Lexx Lewis M.D. 08/18/2016 11:02 AM Dictated Date/Time: 08/18/2016 11:01 AM
== END | disposition home or self-care (01) ==
LOC: C.RADBC 10:13
PROVIDERS: ATTEND Family Medicine
DX: M54.2 Cervicalgia (principal)

== ENCOUNTER → 2016-08-31 | Day surgery (SDC) | payer OTHER ==
[2016-08-31] VITALS (16 sets, daily range): BP systolic 146–174; BP diastolic 88–109; PULSE 61–72; TEMP 36.9–37.2; O2SAT 96–100; Ht 185.4 cm; Wt 93.0 kg
[~2016-08-31] VITALS: Ht 185.4 cm; Wt 93.0 kg
[~2016-08-31] MED LIST changes: +FENTANYL CITRATE 100 MCG 2 ML CARP IV ONE; +FENTANYL CITRATE INJ 50 MCG/1 ML 2 ML VIAL IV SCH; +MIDAZOLAM HCL 5 MG/ML 1 ML VIAL IV ONE; +MIDAZOLAM HCL 5 MG/ML 1 ML VIAL IV SCH; +NURSING VERBAL MED ORDER ONE; +SODIUM CHLORIDE 0.9% 1000ML 1,000 ML IV SCH
--- NOTE | 2016-08-31 07:52 | Procedure Note ---
Pre-Mod Sedation Assessment General Date of Moderate Sedation: August 31, 2016. Review Cardiovascular: regular rate, rhythm, no edema, no gallop Abdomen: normal bowel sounds, non tender, soft Lungs: chest non-tender, lungs clear Airway Class: I Pre-Sedation Airway Assessment Oral Cavity: WNL Able to Visualize Vocal Cords: Yes Short Thick Neck: No Hx of Sleep Apnea: No Smoking Status: Current Every Day Smoker Mallampati Classification: Class I ASA Classification: Class I Procedure Planning Contraindications-for Mod Sed: None Yes Notes The planned sedation has been discussed with the patient and consent obtained. I have identified the patient, determined the appropriateness of sedation and have assessed the patient immediately prior to the procedure. All medicine(s) and interventions are by my order.
--- NOTE | 2016-08-31 09:04 | Procedure Note ---
Post-Moderate Sedation Plan General Date of Moderate Sedation August 31, 2016. Vital Signs: Vital Signs Past 12 Hours Date Time Temp Pulse Resp B/P Pulse Ox O2 Delivery O2 Flow Rate FiO2 08/31/16 08:55 67 18 154/98 99 Nasal Cannula 4.0 Mask 08/31/16 08:50 61 22 174/109 99 Nasal Cannula 4.0 Mask 08/31/16 08:45 61 22 174/109 99 Nasal Cannula 4.0 Mask 08/31/16 08:40 65 22 159/106 99 Nasal Cannula 4.0 Mask 08/31/16 08:35 64 30 155/98 99 Nasal Cannula 4.0 Mask 08/31/16 08:30 61 26 146/97 99 Nasal Cannula 4.0 Mask 08/31/16 08:25 67 22 152/99 99 Nasal Cannula 4.0 Mask 08/31/16 08:20 66 21 159/100 99 Nasal Cannula 4.0 Mask 08/31/16 08:15 72 155/94 99 Room Air 4.0 Nasal Cannula 08/31/16 07:47 37 63 18 154/98 96 Room Air Review - Discharge Plan Post Moderate Sedation Plan: On clinical assessment, the patient appears to have tolerated the conscious sedation without complications. Patient is recovering as anticipated. Patient will continue to be monitored by nursing and may be discharged when conscious sedation discharge criteria are met.
--- NOTE | 2016-08-31 09:13 | Discharge Instructions ---
Discharge Instructions Date of Service August 31, 2016. Admission Reason for Admission: Hemoptysis Discharge Discharge Diagnosis / Problem: hemoptysis Discharge Goals Goal(s): Diagnostic testing Activity Recommendations Activity Limitations: resume your previous activity . Instructions / Follow-Up Instructions / Follow-Up Dr. Zaidi 2 weeks Current Hospital Diet Patient's current hospital diet: Discharge Diet Recommended Diet: Regular Diet Procedures Procedures Performed: flexible fiberoptic bronchoscopy with bronchial washings Pending Studies Studies pending at discharge: yes List of pending studies: cytology Laboratory Results Hemoglobin A1c Test 07/03/16 08:27 Range/Units Estimated Average Glucose 94 mg/dl Hemoglobin A1c 4.9 4.5-5.6 % Medical Emergencies . Who to Call and When: Medical Emergencies: If at any time you feel your situation is an emergency, please call 911 immediately. . Non-Emergent Contact Non-Emergency issues call your: Surgery Center Administrator Call Non-Emergent contact if: temperature is above 101.5 . . "Provider Documentation" section prepared by Blake Zaidi. . VTE Core Measure Inpt VTE Proph given/why not?: Treatment not indicated
--- NOTE | 2016-08-31 10:54 | OPERATIVE REPORT ---
DATE OF OPERATION: 08/31/2016 TIME: 9:15 a.m. PROCEDURE: Bronchoscopy. PREBRONCHOSCOPY DIAGNOSIS: Hemoptysis. POSTBRONCHOSCOPY DIAGNOSES: 1. Same -- no hemoptysis seen. 2. Small benign appearing papilloma type lesion of distal trachea. 3. Abnormal appearing density inferior turbinate on the right. MEDICATIONS DURING THE PROCEDURE: Versed 2.5 mg and fentanyl 50 mcg. DESCRIPTION OF PROCEDURE: The procedure started at 8:28 a.m. Xylocaine 2% was sprayed into the nasal passages and oropharynx. The bronchoscope was then passed through the right naris. The nasal passages were patent. Some mucus was seen that was suctioned. The pharynx was normal. Larynx was normal. The vocal cords approximated. Xylocaine was instilled onto the vocal cords and the scope was then advanced into the trachea without difficulty. Proximal and mid trachea were normal. The emeka was sharp. At the entrance to the right upper lobe was a small flap-like piece of tissue that appeared to be normal mucosa that partially obstructed the view of the right upper lobe entrance. I was able to put the scope underneath this and then to the right upper lobe without difficulty. There were 3 subsegments all of which were clear. Scant sputum secretions were seen. They were stringy. The bronchus intermedius was normal. The right middle lobe and lower lobe showed scant secretions. No endobronchial lesions were seen. No hemoptysis was seen. The scope was then withdrawn to the emeka. The left side was entered. Left main was normal. Left upper lobe and left lower lobe showed no endobronchial abnormalities and no hemoptysis. The patient had very scant secretions. I came back to the right side and instilled 5 mL of saline into the right upper lobe and 5 mL of saline into the right lower lobe and aspirated whatever secretions were present. The scope was then withdrawn. As I was removing the scope back into the nasal area on the distal portion of the inferior turbinate was a whitish tissue that did not appear to be normal turbinate. Exactly what it is, it is unknown, but likely should be seen by ENT. The bronchoscope was then removed. The patient tolerated the procedure well. It was done with continuous cardiac monitoring and pulse oximetry. The patient was stable as he was going back to the short stay. I attest to the content of the Intraoperative Record and any orders documented therein. Any exceptio ns are noted below.
== END | disposition home or self-care (01) ==
LOC: C.ACU 07:35
PROVIDERS: ATTEND Internal Medicine Pulmonary Disease
DX: R04.2 Hemoptysis (principal); J44.9 Chronic obstructive pulmonary disease, unspecified; F17.200 Nicotine dependence, unspecified, uncomplicated; K21.9 Gastro-esophageal reflux disease without esophagitis; I10 Essential (primary) hypertension; Z82.49 Family history of ischemic heart disease and other diseases of the circulatory system

== ENCOUNTER → 2017-01-17 | Outpatient (CLI) | payer OTHER ==
[~2017-01-17] MED LIST changes: -FENTANYL CITRATE 100 MCG 2 ML CARP IV ONE; -FENTANYL CITRATE INJ 50 MCG/1 ML 2 ML VIAL IV SCH; -MIDAZOLAM HCL 5 MG/ML 1 ML VIAL IV ONE; -MIDAZOLAM HCL 5 MG/ML 1 ML VIAL IV SCH; -NURSING VERBAL MED ORDER ONE; -SODIUM CHLORIDE 0.9% 1000ML 1,000 ML IV SCH
--- NOTE | 2017-01-17 09:23 | DIAGNOSTIC IMAGING REPORT ---
CT OF THE CHEST WITHOUT IV CONTRAST CLINICAL HISTORY: Right lung nodule. COMPARISON STUDY: CT of the abdomen and pelvis July 09, [address] July 10, 2016. CT DOSE: 679.99 mGy.cm TECHNIQUE: Axial images of the chest were obtained without IV contrast. Images were reviewed in the axial, sagittal, and coronal planes. IV contrast was not administered for this examination. A dose lowering technique was utilized adhering to the principles of ALARA. FINDINGS: No enlarged axillary, mediastinal or hilar lymph nodes are present. The size of the heart is normal. There is no pericardial effusion. Central airways are patent. There is mild to moderate paraseptal emphysema. No consolidation is identified. No pneumothorax or pleural effusion is present. A 6 mm right lower lobe nodule shown image 234 of [address] of July 11, 2015. A 4 mm right lower lobe nodule shown on image 200 also unchanged. There are no new nodules. The bony thorax and upper abdomen are unremarkable. Left adrenal nodularity is unchanged. The gallbladder is surgically absent. There is a small left renal cyst. IMPRESSION: 1. No change in the 6 mm right lower lobe nodule since CT of July 10, 2016. Continued follow-up as per the attached recommendations is suggested. 2. No acute intrathoracic findings. 3. Mild to moderate paraseptal emphysema. Please refer to below summary of Fleischner criteria recommendations for follow-up of incidental CT nodules (Ruma Gamboa, Guidelines for management of small pulmonary nodules detected on CT scans: A statement from the Fleischner Society, Radiology 237: [phone].) SOLID NODULES Solitary nodule size: <6 mm * low risk patients: no follow-up needed * high risk patients: optional CT at 12 months Solitary nodule size: 6-8 mm * low risk patients: follow-up at 6-12 months, then consider further follow-up at 18-24 months * high risk patients: initial follow-up CT at 6-12 months and then at 18-24 months if no change Solitary nodule size: >8 mm * either low or high risk patients - consider follow-up CT at 3 months, and/or CT-PET, and/or biopsy Multiple nodules size: <6 mm * low risk patients: no routine follow-up * high risk patients: optional CT at 12 months Multiple nodules size: 6-8 mm * low risk patients: follow-up at 3-6 months, then consider further follow-up at 18-24 months * high risk patients: follow-up at 3-6 months, then at 18-24 months if no change Multiple nodules size: >8 mm * low risk patients: follow-up at 3-6 months, then consider further follow-up at 18-24 months * high risk patients: follow-up at 3-6 months, then at 18-24 months if no change Note: newly detected indeterminate nodule in persons 35 years of age or older. * low risk patients: minimal or absent history of smoking and/or other known risk factors * high risk patients: history of smoking or of other known risk factors (e.g. first degree relative with lung cancer, or exposure to asbestos, radon, uranium) * if a nodule up to 8 mm is partly solid or is ground glass further follow-up is required after 24 months to exclude possible slow growing adenocarcinoma (ADIN) Electronically signed by: Sen Hall M.D. 01/17/2017 9:21 AM Dictated Date/Time: 01/17/2017 9:11 AM
== END | disposition home or self-care (01) ==
LOC: C.CTS 08:51
PROVIDERS: ATTEND Physician Assistant
DX: R91.1 Solitary pulmonary nodule (principal)